=== PATIENT | female | born 1980 | race Caucasian/White ===

== ENCOUNTER 2017-03-26 17:52 | Emergency (ER) | payer MEDICAID ==
[2011-01-16 15:48] VITALS: BMI 24.2
== END 2017-03-26 20:30 | disposition home or self-care (01) ==
LOC: D.ER 17:52
DX: S60.211A Contusion of right wrist, initial encounter (principal); S60.221A Contusion of right hand, initial encounter; S70.01XA Contusion of right hip, initial encounter; W00.0XXA Fall on same level due to ice and snow, initial encounter; Y93.89 Activity, other specified; Y92.019 Unspecified place in single-family (private) house as the place of occurrence of the external cause

== ENCOUNTER 2018-02-09 16:06 | Emergency (ER) | payer SELFPAY ==
[~2018-02-09] VITALS: Ht 149.9 cm; Wt 47.7 kg
[2018-02-09 16:11] VITALS: Ht 149.9 cm; Wt 47.7 kg
[2018-02-09] MEDS ORDERED: MOBIC7.5 MG (16:12)
[2018-02-09] MEDS ORDERED: KLONOPIN1 MG PO (16:12)
[2018-02-09] MEDS ORDERED: VIBRAMYCIN50 MG (16:12)
[2018-02-09] MEDS ORDERED: DICLOFENAC SODI50 MG PO (17:40)
[2018-02-09 17:55] VITALS: BP 133/68
== END 2018-02-09 17:55 | disposition home or self-care (01) ==
LOC: D.ER 16:06
DX: M54.12 Radiculopathy, cervical region (principal)